=== PATIENT | male | born 1950 | race Caucasian/White ===

== ENCOUNTER 2020-07-22 02:20 | Inpatient (IN) | payer MEDICARE ==
[~2020-07-22] VITALS: Ht 177.8 cm; Wt 60.9 kg
--- NOTE | 2020-07-22 06:54 | NUR ---
PT ARRIVED TO [facility] AT 0618, HE USED THE RESTROOM INDEPENDENTLY. VS TAKEN AND ENTERED AND HX COMPLETE. PT ORIENTED TO THE ROOM AND CALL LIGHT. HE DENIES NEEDS AT THIS TIME AND CALL LIGHT IS CLOSE.
--- NOTE | 2020-07-22 07:39 | NUR ---
REPORT RECEIVED. PT IN BED WITH EYES CLOSED. LR INFUSING AT 125ML/HR. VISIBLE FROM NURSING STATION. CALL LIGHT IN REACH.
--- NOTE | 2020-07-22 07:40 | NUR ---
REPORT RECIEVED. PT IN BED AND AWAKES WHEN NURSE WALKS IN ROOM. DENIES PAIN. LR AT 125ML/HR INFUSING. CALL LIGHT IN REACH.
--- NOTE | 2020-07-22 09:23 | NUR ---
PATIENT AWAKE IN BED, VITALS AND I&OS CHARTED. R/T IN FOR EKG, PATIENT PROVIDED WITH PRE SURG. WIPES BY KASSANDRA CABAN.
--- NOTE | 2020-07-22 09:38 | NUR ---
MEDICATIONS GIVEN, PRE SURGICAL WIPE DOWN COMPLETED. PT OFF FLOOR TO SURGERY.
--- NOTE | 2020-07-22 11:18 | NUR ---
07/22/20 1118 Sasha Zarate 1110- PT ARRIVES TO PACU NONAROUSABLE TO NOXIOUS STIMULI WITH AN OPA IN PLACE. RESP EVEN AND UNLABORED. OXYGEN SAT HIGH 90'S TO 100% ON 10L VIA MASK.
--- NOTE | 2020-07-22 11:21 | CONS ---
[facility] [address], [place] [address] Signed DATE OF CONSULTATION: 07/22/2020 CHIEF COMPLAINT: Right lower quadrant abdominal pain. 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 He used to live in [place], [place]. He has moved out here in the last 5 to 6 years to be in better weather and closer to family. At age 61, he developed ruptured appendicitis and was admitted to the [facility] in [place], [place]. They treated him conservatively with antibiotics. Apparently, no percutaneous drainage was undertaken. There was discussion whether or not to perform an interval appendectomy. In the end, no appendectomy was performed. Three days ago, he started to develop right lower quadrant abdominal pain. He recalled that it is the same pain that he had with his appendicitis 8 years ago. He came to emergency room last night for evaluation. He is tender slightly below McBurney point. White count is borderline at 11.2. Coronavirus is negative. He does have some blood in his urine, but no bacteria. CT scan showed an inflammatory process just below the cecal area. The small bowel and sigmoid colon do not appear to be the source of that inflammatory area. No obvious abscess. I have been asked to admit him as a general surgeon on-call for consideration of recurrent appendicitis. He was not systemically ill or toxic. He was given Rocephin and Flagyl and pain control with IV fluids. He has done well overnight. He said he is no worse this morning. PAST MEDICAL HISTORY: Ruptured appendicitis treated conservatively at the [facility] in [place], [place] at age 61. PAST SURGICAL HISTORY: Circumcision. SOCIAL HISTORY: He does not smoke or drink. He is to his Clarissa at [phone]. He spent time in the [place]. He has no primary care provider. They have two daughters. 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 When he needs any medical care, he generally goes to the [facility], particularly in [place]. He does not have a specific pharmacy, but he said he would probably go to [facility]. FAMILY HISTORY: His dad was 89 and with prostate cancer. Mom is 87 years old and still living. There is no family history of colon cancer or polyps. REVIEW OF SYSTEMS: Electronically Signed By: LILY CAZARES MD 07/22/20 1121 PATIENT NAME: KESHAV CASTELAN CONSULTATION DATE OF : 52 REPORT #: [id number] PHYSICIAN: LILY CAZARES MD PCP: OTHER PCP REPORT IS CONFIDENTIAL AND NOT TO BE RELEASED WITHOUT AUTHORIZATION [facility] [address], [place] [address] Signed He had 10 systems reviewed and there were no major new issues. ALLERGIES: None. MEDICATIONS: None. PHYSICAL EXAMINATION: VITAL SIGNS: Blood pressure is 155/75, his heart rate is 83, his respiratory rate is 17, his temperature is 99.3, he is 100% on room air. He is 5 feet 10 inches and 60 kg. GENERAL: Keshav is a 69-year-old gentleman, who appears healthy and at his stated age. He does not appear systemically ill or toxic. LUNGS: Generally clear to auscultation bilaterally. HEART: Regular rate and rhythm without murmurs. ABDOMEN: Soft, flat with mild tenderness to deep palpation at and slightly below McBurney point. LABORATORY DATA: His white blood count is 11.2, hemoglobin 13, neutrophils 77. Electrolytes unremarkable. Glucose 117. Liver function tests are negative. Albumin is 4.2. His coronavirus was negative. The urinalysis showed some blood, but no white cells and no bacteria. RADIOGRAPHIC STUDIES: CT scan of abdomen and pelvis is reviewed along with the report. He certainly has an inflammatory process just below the cecum. ASSESSMENT AND PLAN: Keshav is a 69-year-old gentleman, who appears to have recurrent appendicitis. He has been admitted, given IV fluids, antibiotics, and pain control. I reviewed with Keshav the above findings in detail. We discussed the location and function of the appendix. We discussed the differential diagnosis. We have reviewed laparoscopic versus open appendectomy. He understands expected intraop and postop course. There is risk to surgery including, but not limited to bleeding, infection, scarring, change in contour of the skin, damage to bowel, appendiceal stump leak, postoperative intraabdominal abscess, incisional hernias and other unforeseen comorbidities. He had expressed understanding, and would like to proceed with an open appendectomy. Lily Cazares MD Electronically Signed By: LILY CAZARES MD 07/22/20 1121 PATIENT NAME: KESHAV CASTELAN CONSULTATION DATE OF : 52 REPORT #: [id number] PHYSICIAN: LILY CAZARES MD PCP: OTHER PCP REPORT IS CONFIDENTIAL AND NOT TO BE RELEASED WITHOUT AUTHORIZATION [address] [address] Signed ALB/MODL /[id number] cc: Lily Cazares MD Copies: LILY CAZARES MD ~ Electronically Signed By: LILY CAZARES MD 07/22/20 1121 PATIENT NAME: ANNELISETERRIMARTI AMBRIZ CONSULTATION DATE OF : 52 REPORT #: [id number] PHYSICIAN: LILY CAZARES MD PCP: OTHER PCP REPORT IS CONFIDENTIAL AND NOT TO BE RELEASED WITHOUT AUTHORIZATION
--- NOTE | 2020-07-22 11:56 | NUR ---
PT ARRIVED TO FLOOR VIA STRETCHER. PT IS ALERT AND ORIENTED. MIDLINE DRESSING TO ABDOMEN IS C/D/I. BOWEL TONES ACTIVE. D5LR AT 100 STARTED. CPOX AND SCD'S PLACED. VITALS TAKEN AND STABLE. CALL LIGHT IN REACH.
--- NOTE | 2020-07-22 13:48 | NUR ---
PATIENT AWAKE IN BED. VITALS AND I&OS CHARTED. RN NOTIFIED OF LOW GRADE FEVER, EDUCATED PATIENT ON USING "IS". PATIENT IN GOOD SPIRITS, ATE BOWL OF SOUP DOING WELL, CALL LIGHT IN REACH, NO OTHER NEEDS.
--- NOTE | 2020-07-22 14:20 | NUR ---
ROUNDED ON PT. DENIES PAIN. DENIES NAUSEA. CALL LIGHT IN REACH.
--- NOTE | 2020-07-22 14:30 | NUR ---
ROUNDED ON PT POST OP VITALS COMPLETED. PT UP TO BATHROOM VOIDING WELL. DENEIS NAUSEA. REPORTING 5/10 PAIN. TYLENOL ADMINSTERED.
--- NOTE | 2020-07-22 15:53 | EKG ---
[facility] [address] [facility] [place], [place] [address] Signed Normal sinus rhythm Normal ECG No previous ECGs available Confirmed by MALIA MNEDEZ MD ([id number]) on 07/22/2020 3:53:25 PM Electronically Signed By: MALIA MENDEZ MD 07/22/20 1553 PATIENT NAME: KESHAV CASTELAN KATINA Electrocardiogram DATE OF : 52 PHYSICIAN: MALIA MENDEZ MD REPORT #: [id number] REPORT IS CONFIDENTIAL AND NOT TO BE RELEASED WITHOUT AUTHORIZATION
--- NOTE | 2020-07-22 18:56 | NUR ---
PT REPORTING PAIN AND WANTING TO STAY OPIATE FREE. DR TOLBERT NOTIFIED. NEW ORDERS RECIEVED. READ BACK DONE FOR VERIFICATION.
--- NOTE | 2020-07-22 19:29 | NUR ---
RECEIVED REPORT FROM JAZMINE SCHERER. pt RESTING IN BED. REPORTED 4/10 PAIN. O2 SAT 98% ON ROOM AIR. HR 100. NO REQUESTS AT THIS TIME. CALL LIGHT WITHIN REACH. WHITEBOARD UPDATED.
--- NOTE | 2020-07-22 20:23 | NUR ---
IN TO DO ASSESSMENT AND GIVE MEDICATIONS. pt RESTING IN BED. REPORTED 4/10 PAIN. PRN GIVEN WITH SCHEDULED MEDICATIONS (SEE MAR). SHADOWING NOTED ON DRESSING, BOWEL TONES ACTIVE. ANSWERED POST OP QUESTIONS. NO FURTHER REQUESTS AT THIS TIME. CALL LIGHT WITHIN REACH.
--- NOTE | 2020-07-22 20:56 | NUR ---
CALL LIGHT ANSWERED. IV ANTIBIOTIC COMPLETE. SBA TO RESTROOM. NO ADDITIONAL REQUESTS.
--- NOTE | 2020-07-22 23:37 | NUR ---
ROUNDED ON pt. RESTING IN BED. REPORTED 4/10 PAIN, PRN GIVEN (SEE MAR). FRESH WATER PROVIDED. NO FURTHER REQUESTS AT THIS TIME. CALL LIGHT WITHIN REACH.
--- NOTE | 2020-07-23 02:00 | NUR ---
IN TO DO ASSESSMENT. pt RESTING IN BED REPORTED 4/10 PAIN. PRN GIVEN (SEE MAR). pt UP TO VOID. ASSESSMENT DONE. SLIGHT AMOUNT MORE SHADOWING NOTED ON DRESSING. BOWEL TONES HYPOACTIVE. VITALS DONE. PROVIDED FRESH WATER. IV ABX INFUSING. NO FURTHER REQUESTS AT THIS TIME. CALL LIGHT WITHIN REACH.
--- NOTE | 2020-07-23 02:47 | NUR ---
call light answered. iv pump alarming kvo. saline locked pt; iv pump in standby. call light within reach.
--- NOTE | 2020-07-23 06:01 | NUR ---
ROUNDED ON pt. RESTING IN BED ON PHONE. REPORTED HIS PAIN IS "ABOUT THE SAME" DISCUSSED PAIN MANAGEMENT. NO REQUESTS AT THIS TIME. CALL LIGHT WITHIN REACH.
--- NOTE | 2020-07-23 07:52 | NUR ---
REPORT RECEIVED. PT LYING IN BED. WAKES EASILY WHEN NURSE WALKS IN ROOM. D5LR INFUSING AT 100ML/HR. PAIN IS 4/10. CALL LIGHT IN REACH. DENIES NEEDS.
--- NOTE | 2020-07-23 08:17 | OR ---
[facility] [address], [place] [address] Signed DATE OF OPERATION: 07/22/2020 SURGEON: Lily Tolbert MD PREOPERATIVE DIAGNOSIS: Recurrent acute appendicitis. POSTOPERATIVE DIAGNOSIS: Recurrent acute suppurative appendicitis. PROCEDURE: Open appendectomy. ESTIMATED BLOOD LOSS: None. FINDINGS: Keshav had 2.5 to 3 cm of his appendix immediately below the cecum, densely adherent to the retroperitoneum. Even finger-fracture technique could not separate the tissue planes. We had used electric cautery very carefully along the edge of the appendix to free it up from the retroperitoneum. The process was very localized and all the surrounding tissues were quite soft, and therefore no drain was required. INDICATIONS: Keshav is a 69-year-old gentleman. He used to live out in [place], [place]. He has been very healthy his whole life. He does go through the [facility] occasionally. At the age of 61, he developed perforated appendicitis. He stayed 13 days at the [facility] on antibiotics. Afterwards, he had a long discussion with the surgical team regarding antral appendectomy versus wait and watch. The decision was made to wait and watch. In the meantime, he has moved out to [place], [place] for better weather and be closer to family. 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 He has no primary care provider. He developed recurrent right lower quadrant abdominal pain about three days ago. He recognized it as his appendicitis pain. He finally came to the emergency room for evaluation. In emergency room, his white count was borderline, 11.2. Coronavirus was negative. Urinalysis did show some blood, but no white blood cells and no bacteria. Albumin was good at 4.2. He had a CT scan of the abdomen and pelvis in the emergency room showing the significant inflammatory process on the inferior side of the cecal area. The small bowel and sigmoid colon did not appear to be involved in this process. I have been asked to admit him as a general surgeon on-call. He received Rocephin and Flagyl and IV Electronically Signed By: LILY TOLBERT MD 07/23/20 0817 PATIENT NAME: KESHAV CASTELAN OPERATIVE REPORT DATE OF : 52 REPORT #: [id number] PHYSICIAN: LILY TOLBERT MD PCP: OTHER PCP REPORT IS CONFIDENTIAL AND NOT TO BE RELEASED WITHOUT AUTHORIZATION [facility] [address] [place], [place] [address] Signed fluids overnight. He also received some pain control. This morning, I explained to him his current findings. We discussed the location and function of the appendix. We discussed laparoscopic versus open appendectomy. I recommended he undergo open appendectomy in this situation, that proved to be a alva decision. We reviewed the expected intraop and postop course. We also reviewed the risks including, but not limited to bleeding, infection, scarring, change in contour of the skin, damage to bowel, appendiceal stump leak, postoperative intraabdominal abscess, incisional hernias, and other unforeseen comorbidities. He had expressed understanding and wished to proceed. DESCRIPTION OF PROCEDURE: After talking with Keshav once again and along with our anesthesia provider, he was taken into the operating room and placed in the supine position under general endotracheal tube anesthesia. He was already on preoperative antibiotics along with subcutaneous heparin. SCDs were utilized. Gallegos catheter was inserted with return of clear light yellow urine. His abdomen was then prepped and draped in the usual sterile fashion. I could feel a mild amount of induration deep on palpation in the right lower quadrant after pharmacologic paralysis. We utilized a standard periumbilical incision and carried this into the abdomen with the help of the cautery without difficulty. The small bowel was packed out of the way with moist laps, and we could access the cecum. The anterior taenia coli was followed down to the base of the appendix and as appendix traveled posteriorly, it was densely adherent to the retroperitoneum right on the pelvic brim. Therefore, we used our cautery around the base of the appendix. Pean clamp was used to divide the appendix from the cecum. The appendiceal stump was secured with 0-Vicryl suture. The appendiceal stump was lightly cauterized. We could not even with finger-fracture technique separate the remaining appendix from the retroperitoneum. Consequently, we very slowly and carefully used the cautery right along the edge of the appendix until we had the appendix completely free out of the abdomen. All hemostasis was excellent. We took some fat and brought it over the appendiceal stump and held in place with an interrupted ziuzmi-jk-nbfjd 3-0 Vicryl suture. Thankfully, the cecum and the terminal ileum were not particularly inflamed. Everything was more or less limited to the appendix itself in the small area of the retroperitoneum. Consequently, we did not place a drain. The area was irrigated and suctioned out until clear. The bowel was returned to its position and all the laps were removed. The count was correct. We then closed his midline fascia with interrupted iyeusf-rq-nnmks #1 PDS sutures. Local anesthetic was injected in the abdominal wall. The wound was irrigated and suctioned out until clear. The dermis was reapproximated with interrupted 3-0 subcuticular Monocryl sutures. [place] were used to reapproximate the skin. Dry gauze and tape were then applied. Keshav was then awakened from his anesthesia, extubated in the OR, and taken to the recovery room in stable condition. Gallegos catheter had been removed prior to him awakening from his anesthesia without difficulty. Electronically Signed By: LILY TOLBERT MD 07/23/20 0817 PATIENT NAME: KESHAV CASTELAN OPERATIVE REPORT DATE OF : 52 REPORT #: [id number] PHYSICIAN: LILY TOLBERT MD PCP: OTHER PCP REPORT IS CONFIDENTIAL AND NOT TO BE RELEASED WITHOUT AUTHORIZATION [address] [address] Signed MD BRONWYN Joseph/TALHA /[id number] cc: Lily Tolbert MD Copies: LILY TOLBERT MD ~ Electronically Signed By: LILY TOLBERT MD 07/23/20 0817 PATIENT NAME: KESHAV CASTELAN OPERATIVE REPORT DATE OF : 52 REPORT #: [id number] PHYSICIAN: LILY TOLBERT MD PCP: OTHER PCP REPORT IS CONFIDENTIAL AND NOT TO BE RELEASED WITHOUT AUTHORIZATION
--- NOTE | 2020-07-23 09:51 | NUR ---
ASSESSMENT COMPLETED. DRESSING TO MIDLINE DC'D PER ORDER. PT PLANNING TO AMBULATE HALLS AFTER A PHONE CALL. ALSO PLAN TO SHOWER LATER. MIDLINE IS WELL APPROXIMATED WITH WIN IN PLACE. SEROSANGUENOUS DRAINAGE ON DRESSING. PT REPORTS PAIN OF 3/10 AND DECLINES NEED FOR PAIN MEDICAITON. OTHER ASSESSMENT IS WNL. TITRATED D5LR TO 50ML/HR. PT DENIES NAUSEA. ATE 100% OF BREAKFAST.
--- NOTE | 2020-07-23 10:37 | NUR ---
PT OUT AMBULATING HALLS INDEPENDENTLY.
--- NOTE | 2020-07-23 10:47 | NUR ---
PATIENT UP IN ROOM. PATIENT HAD BM, AND IS NOW AMBULATING HALLS AGAIN.
--- NOTE | 2020-07-23 11:09 | NUR ---
PT ALERT, ORIENTED AND STANDING UP IN RM. PT HAS OPEN APPY, BUT COULD NOT EXPLAIN TO ME WHAT SURGERY HE HAD. PT STATED HE ATTENDS A DRUZE [facility] AND WOULD LIKE PLASTERER SPOT TO COME TODAY FOR A VISIT. WILL INFORM FR BOLTON. PT REQUESTED PRAYER, WILL FOLLOW NEEDED
--- NOTE | 2020-07-23 13:00 | NUR ---
ROUNDED ON PT. PT SITTING UP IN CHAIR. ATE 100% OF LUNCH. DENEIS PAIN AT THIS TIME. NO CHANGES IN ASSESSMENT. PT INDEPENDENT IN ROOM AND DENEIS NEEDS.
--- NOTE | 2020-07-23 14:00 | NUR ---
PT NOW REPORTNG PAIN 5/10 AND REQUESTING TYLENOL. NO FURTHER NEEDS.
--- NOTE | 2020-07-23 17:31 | NUR ---
Spoke with Jessica. He denies needs for dc. Will spend tonight and home tomorrow. He is doing well. Uses the [facility] for s appts. Jorge to remember his new Dr's name. Old pcp was Dr. Sandoval. He does not take any meds, but will use [facility] if needed.
--- NOTE | 2020-07-23 18:36 | NUR ---
ROUNDED ON PT. REPORTING 5/10 ABDOMINAL PAIN. MOTRIN ADMINSTERED. PT ATE 100% OF DINNER. HAS HAD 3 BMS TODAY. DENIES FURTHER NEEDS.
--- NOTE | 2020-07-23 19:15 | NUR ---
REPORT RECEIVED FROM DAY SHIFT RN. PT LYING IN BED ALERT AND ORIENTED TALKING ON PHONE. REPORTS PAIN 10/20. DENIES PRN. IVF INFUSING. PT DENIES NEEDS AT THIS TIME. WHITE BOARD UPDATED. CALL LIGHT IN REACH.
--- NOTE | 2020-07-23 20:54 | NUR ---
EVENING ASSESSMENT COMPLETE. SCHEDULED MEDS ADMINISTERED PER EMAR. PT DENIES NAUSEA. REPORTS PAIN IS TOLERABLE AT THIS TIME. ABD MILDLY DISTENDED. BOWEL TONES ACTIVE. PT REPORTS MULTIPLE BM'S TODAY. MIDLING INCISION WELL APPROXIMATED WITH WIN. NO REDNESS OR DRAINAGE NOTED. OPEN TO AIR. PT UP AMB IN HALLWAY INDEPENDENTLY AT THIS TIME.
--- NOTE | 2020-07-24 01:52 | NUR ---
CALL LIGHT ANSWERED. PT UP TO BR INDEPENDENTLY TO VOID. GAIT STEADY. BACK TO BED, JIMENEZ WELL. IV ABX INFUSING PER ORDER. PRN ADMINISTERED FOR 4/10 ABD PAIN. FRESH WATER PROVIDED. NO FURTHER NEEDS.
--- NOTE | 2020-07-24 03:23 | NUR ---
ASSESSMENT COMPLETE. MIDLINE INCISION UNCHANGED. PT REPORTS FLATUS. BOWEL TONES ACTIVE. ABD SOFT AND NON-DISTENDED. FRESH WATER PROVIDED.
--- NOTE | 2020-07-24 06:14 | NUR ---
VS AND I&O COMPLETE. PRN ADMINISTERED FOR 4/10 ABD PAIN. PT DENIES NAUSEA. WARM BLANKET PROVIDED.
--- NOTE | 2020-07-24 07:31 | DS ---
[facility] [address] [place], [place] [address] Signed ADMISSION DATE: 07/22/2020 DISCHARGE DATE: 07/24/2020 FINAL DIAGNOSIS: Recurrent acute suppurative appendicitis. PROCEDURE: Open appendectomy. HISTORY OF PRESENT ILLNESS: Keshav is a 69-year-old gentleman, who had a ruptured appendicitis at age 61. He was treated conservatively at the [facility] in [place], [place]. He stayed in the hospital for 13 days. There was discussion whether or not to do an interval appendectomy or simply observation and then observation was chosen. He used to live in [place], [place]. They have now moved out to [place], [place] for better weather and to be closer to family. However, he had developed recurrent right lower quadrant abdominal pain three days prior to admission. He recognizes as appendicitis pain. He came to the emergency room for evaluation. HOSPITAL COURSE: Keshav was seen in the emergency room and his white count was borderline at 11.[address] scan confirmed an inflammatory process at the base of the cecum. I had been asked to admit him as a general surgeon on-call. He came in with Rocephin, Flagyl and IV fluids. I took him to the operating room later that day through an open periumbilical midline incision and found 3 cm of an appendiceal stump densely adherent to the retroperitoneum. We could not separate with the fingers. We had to use the cautery very carefully. However, the process was quite localized. Consequently, he has done very well postoperatively. He was tolerating diet. He has had several bowel movements and passing plenty of flatus. His abdomen is completely soft, flat, and nontender. Incision is healing well without any local signs or symptoms of infection. At this point, he would like to be discharged home. He told me he normally would go to the [facility] in [place], [place]. However, that is 3 hours away at this point. He told me his has established with would see him or someone else in that group. DISCHARGE PLANS AND MEDICATIONS: Keshav is going to be discharged home with a prescription for Lily Dale 10/325 one tablet p.o. q.6 hours p.r.n. for pain. We will dispense 15 tablets with no refills. He can use Tylenol, ibuprofen or Aleve for ktgn-ub-didewpvv postoperative pain. He can purchase that lrhd-btt-obohdfw. He takes no other medications. He can continue a regular diet at home. He can continue his activities of daily living including walking Electronically Signed By: LILY CAZARES MD 07/24/20 0731 PATIENT NAME: KESHAV CASTELAN DISCHARGE SUMMARY DATE OF : 52 REPORT #: [id number] PHYSICIAN: LILY CAZARES MD PCP: OTHER PCP REPORT IS CONFIDENTIAL AND NOT TO BE RELEASED WITHOUT AUTHORIZATION [facility] [address] [place] [id number] Signed up and down stairs and showering and bathing as usual. We are going to leave all his perla in place. I will have him back in my office in about 5 to 7 days for followup and removal of the perla. In the meantime, we will send copies to the [facility] in [place], but also will send a new referral to Dr. to see if she can take him on as a new patient and/or if someone in her group. He has expressed understanding and agrees with the above plan. Lily Cazares MD ALB/MODL /[id number] cc: [facility] Lily Cazares MD Dr. Copies: LILY CAZARES MD ~ Electronically Signed By: LILY CAZARES MD 07/24/20 0731 PATIENT NAME: KESHAV CASTELAN DISCHARGE SUMMARY DATE OF : 52 REPORT #: [id number] PHYSICIAN: LILY CAZARES MD PCP: OTHER PCP REPORT IS CONFIDENTIAL AND NOT TO BE RELEASED WITHOUT AUTHORIZATION
--- NOTE | 2020-07-24 07:42 | NUR ---
REPORT RECIEVED. PT REQUESTED NOT TO BE WOKEN. PT INDEPENDENT IN ROOM. DR TOLBERT IN FOR DISCHARGE INSTRUCTIONS.
[2020-07-24] MEDS ORDERED: NORCO 10-325 T1 EACH PO (08:03)
--- NOTE | 2020-07-24 08:55 | NUR ---
MED REC COMPLETE
--- NOTE | 2020-07-24 10:00 | NUR ---
ASSESSMENT COMPLETED. ANTIBIOTICS COMPLETED. IV DC'D, MEDICATIONS ADMISNTERED. DISCHARGE INSTRUCTIONS PROVIDED. PT SET UP FOR SHOWER. NO QUESTIONS.
--- NOTE | 2020-07-24 12:11 | NUR ---
PT SITTING IN CHAIR-APPARENTLY HAS SHOWERED AND WAITING FOR HIS TO COME FOR DC. PT EXPRESSED HIS SINCERE THANKS AND APPRECIATION FOR THE CARE HE HAS RECEIVED AT [facility]. CAME WHILE I WAS IN RM. GAVE BLESSING, WILL FOLLOW NEEDED
== END 2020-07-24 11:33 | disposition home or self-care (01) | DRG 343 ==
LOC: ED 02:20 → MS 02:23
PROVIDERS: ADMIT Colon & Rectal Surgery; ATTEND Colon & Rectal Surgery
PROC: 0DTJ0ZZ Resection of Appendix, Open Approach (ICD-10-PCS; principal; 2020-07-22 10:00)
DX: K36 Other appendicitis (principal); Z20.822 Contact with and (suspected) exposure to COVID-19
CPT/HCPCS: 00840; 36415; 74177; 80048; 80053; 81001; 83690; 83735; 84100; 85025; 90662; 93005; 93010; 96374; 96375; 99285-25; C9113; C9803; J0330; J0696; J1100; J1644; J1885; J2250; J2405; J2704; J2765; J3010; J7030; J7121; Q9967; U0003